=== PATIENT | female | born 1960 | race Caucasian/White ===

== ENCOUNTER 2017-08-14 11:51 | Outpatient (CLI) | payer OTHER | END 2017-08-14 11:52 | disposition home or self-care (01) | LOC: BICMAMMO 11:51 | PROVIDERS: ATTEND Obstetrics & Gynecology | DX: Z12.31 Encounter for screening mammogram for malignant neoplasm of breast (principal); N63.10 Unspecified lump in the right breast, unspecified quadrant | CPT/HCPCS: 77063; 77067 ==

== ENCOUNTER 2017-08-28 09:04 | Outpatient (CLI) | payer OTHER | END 2017-08-28 09:05 | disposition home or self-care (01) | LOC: BICMAMMO 09:04 | PROVIDERS: ATTEND Obstetrics & Gynecology | DX: N63.10 Unspecified lump in the right breast, unspecified quadrant (principal) | CPT/HCPCS: G0279 ==

== ENCOUNTER → 2017-09-10 | Day surgery (SDC) | payer OTHER | LOC: BICULT 12:50 | PROVIDERS: ATTEND Obstetrics & Gynecology | PROC: 0HBT3ZX Excision of Right Breast, Percutaneous Approach, Diagnostic (ICD-10-PCS; principal; 2017-09-10) | DX: C50.311 Malignant neoplasm of lower-inner quadrant of right female breast (principal); Z17.0 Estrogen receptor positive status [ER+] | CPT/HCPCS: 19083; 88305; 88341; 88342 ==

== ENCOUNTER 2017-09-24 09:29 | Outpatient (CLI) | payer OTHER | END 2017-09-24 09:30 | disposition home or self-care (01) | LOC: BICMRI 09:29 | PROVIDERS: ATTEND Internal Medicine Hematology & Oncology | DX: C50.311 Malignant neoplasm of lower-inner quadrant of right female breast (principal); N64.89 Other specified disorders of breast | CPT/HCPCS: C8908 ==

== ENCOUNTER 2017-09-29 08:04 | Outpatient (CLI) | payer OTHER ==
[2017-09-29 09:07] LABS: #Basophils 0.1 thou/uL (0.0-0.2); #Eosinphils 0.2 thou/uL (0.0-0.7); #Lymphocytes 1.4 thou/uL (1.20-3.40); #Monocytes 0.4 thou/uL (0.11-0.59); #Neutrophils 2.5 thou/uL (1.40-6.50); %Basophils 1.7 % (0.0-1.0); %Monocytes 9.5 % (0.0-10.0); %Neutrophils 53.8 % (42.0-75.0); Hemoglobin 13.8 g/dL (12.0-16.0); Mean Corpuscular Hemoglobin 31.1 pg (27.0-31.0); Mean Corpuscular Volume 91.5 fL (78.0-98.0); Mean Platelet Volume 7.4 fL (7.4-10.4); Platelet Count 290 thou/uL (130-400); RBC Distribution Width 11.8 % (11.5-14.5); Red Blood Cell (RBC) Count 4.45 mill/uL (4.20-5.40); White Blood Cell (WBC) Count 4.7 thou/uL (4.8-10.8)
[2017-09-29 09:26] LABS: ALT (SGPT) 23 U/L (8-55); AST (SGOT) 22 U/L (5-34); Albumin 4.4 g/dL (3.5-5.0); Alkaline Phosphatase 84 U/L (40-150); Anion Gap 13 mmol/L (10-20); BUN (Urea Nitrogen) 8 mg/dL (9.8-20.1); Bilirubin, Total 1.2 mg/dL (0.2-1.2); Calc. Creatinine Clearance 0 mL/min (70-130); Calcium 9.6 mg/dL (7.8-10.44); Carbon Dioxide 26 mmol/L (22-29); Chloride 107 mmol/L (98-107); Estimated GFR-MDRD 87; Globulin 2.8 g/dL (2.4-3.5); Glucose 91 mg/dL (70-105); Potassium 4.3 mmol/L (3.5-5.1); Protein, Total 7.2 g/dL (6.0-8.3); Sodium 142 mmol/L (136-145)
== END 2017-09-29 08:05 | disposition home or self-care (01) ==
LOC: LABBT 08:04
PROVIDERS: ATTEND Surgery
DX: Z01.812 Encounter for preprocedural laboratory examination (principal); C50.911 Malignant neoplasm of unspecified site of right female breast
CPT/HCPCS: 80053; 85025

== ENCOUNTER 2017-10-02 07:54 | Day surgery (SDC) | payer OTHER ==
[2017-09-29 08:28] VITALS: BMI 23.9
[2017-10-02] MEDS ORDERED: Lidocaine 1% PF 5 ML VIAL ONE ×3 (08:24→15:49)
[2017-10-02] MEDS ORDERED: CEFAZOLIN/Water 2 GM/20 ML SYRINGE ONE (10:59)
--- NOTE | 2017-10-02 11:09 | ULT ---
ULTRASOUND GUIDED RIGHT BREAST MASS NEEDLE LOCALIZATION: HISTORY: Breast mass. COMPARISON: Multiple prior examinations, including MRI. FINDINGS: The patient was brought to the ultrasound suite. All questions were answered. The right breast was prepped and draped in the normal sterile fashion. Using a medial to lateral henny nunez, the breast mass was speared. The patient tolerated the procedure well without complications. IMPRESSION: The right breast mass, at 5 o'clock, 2 cm from the nipple, was speared from a medial to lateral appro ach. POS: ANU
--- NOTE | 2017-10-02 11:36 | NM ---
NUCLEAR MEDICINE LYMPHOSCINTIGRAPHY: HISTORY: Breast cancer. COMPARISON: Ultrasound guided needle localization, same day. FINDINGS: The patient was brought to the nuclear medicine suite. All questions were answered. TECHNIQUE: A total of 0.44 millicuries of technetium 99m sulfur colloid was instilled in the periareolar region. There was axillary lymph node uptake. IMPRESSION: Axillary lymph node uptake. POS: ANU
[2017-10-02] MEDS ORDERED: Isosulfan Blue 50 MG/5 ML VIAL ONE (11:57)
[2017-10-02] MEDS ORDERED: Bupivacaine/Epinephrine 0.25% 30 ML VIAL ONE (11:57)
[2017-10-02] MEDS ORDERED: Lidocaine 2% 10 ML INJ ONE (11:57)
[2017-10-02] MEDS ORDERED: Fentanyl 100 MCG/2 ML VIAL ONE ×3 (12:06→14:37)
[2017-10-02] MEDS ORDERED: Midazolam HCl 2 mg/2 ml Vial ONE ×2 (12:09→13:33)
[2017-10-02] MEDS ORDERED: HYDROmorphone 0.5 MG/0.5 ML SYRINGE ONE (13:32)
--- NOTE | 2017-10-02 14:23 | MMO ---
MAMMOGRAM SURGICAL SPECIMEN: Date: 10/02/17 HISTORY: Breast mass. COMPARISON: Ultrasound guided needle localization same date. FINDINGS: The specimen contains a needle, mass, and clip. IMPRESSION: Specimen contains a needle, mass, and clip. OR nurse notified of findings via telephone at 1345 hours. CODE CR. POS: [facility]
[2017-10-02] MEDS ORDERED: HYDROcodone/Acetaminophen 5/325 mg Tablet ONE (15:39)
[2017-10-02] MEDS ORDERED: PROPOFOL 200 MG/20 ML VIAL ONE (15:49)
[2017-10-02] MEDS ORDERED: Ondansetron HCl/PF 4 MG/2 ML Vial ONE (15:49)
[2017-10-02] MEDS ORDERED: Dexamethasone 20 MG/5 ML VIAL ONE (15:49)
[2017-10-02] MEDS ORDERED: ePHEDrine/0.9% NaCl/PF SYRINGE 50 mg/10 ml ONE (15:49)
--- NOTE | 2017-10-02 20:29 | OP ---
PREOPERATIVE DIAGNOSIS: Right breast cancer. SURGEON: Raudel Vincent M.D. PROCEDURE PERFORMED: Right needle localization lumpectomy, lymphoscintigraphy and sentinel lymph nod e biopsy. INDICATIONS: A 57-year-old female, recent mammogram had an area of suspicion. Core biopsy was posit elana for infiltrating ductal carcinoma. She had an MRI of the breast that showed that this was a chari le more extensive towards the nipple. FINDINGS: Four sentinel nodes were found, all negative by touch prep. At least the firm indurated a rakesh did seem to be larger than expected and was probably about 2 cm in diameter and extended subareol ar and towards the nipple. PROCEDURE IN DETAIL: After informed consent was obtained, the patient had undergone placement of nee dle localization as well as radionuclide in Radiology. She was given general endotracheal anesthesia and Lymphazurin 3 mL was infiltrated subareola. Then her chest and axilla were prepped and draped i n usual fashion. A Neoprobe was used with a baseline count of 5. Transcutaneous counts were found o f 50. A transverse axillary incision was performed. Subcu divided sharply and 150 was found. It was blue. It was dissected out efferent and afferent lymphatics ligated with 3-0 Vicryl ties, th en found actually 3 more nodes that were both hot and colored and removed. After that, residual coun ts were all less than 15. There were no other blue nodes noted. The specimens were sent to patholog y for touch prep. Then because there was a concern that this was a larger tumor than expected and it was in the lower inner quadrant of the breast, elected to do an oncoplastic incision. A triangle wa s cut out of skin, which was left attached to the specimen in the inferior portion of the breast all the way from the areola to the inframammary crease. The subcu divided sharply and once through the s ubcu, the tumor was palpable and using sharp dissection with both Metzenbaum scissors and electrocaut mariama, excised this tissue. The needle was left into the specimen marking the medial edge, the skin, t he anterior edge. The mass was sent to pathology for further analysis. Hemostasis was achieved with electrocautery. The wound was irrigated with saline. Then the triangle was closed as a reversed T with interrupted 3-0 Vicryl sutures and then a running subcuticular 4-0 Rapide. Steri-Strips applied . Prior to that because a fairly large defect, I did place a 10-Arabic drain which came out through a separate stab wound. By now, the nodes came back negative and so her axilla was irrigated, closed with interrupted 3-0 Vicryl and skin closed with running subcuticular 4-0 Rapide with Steri-Strips. Sterile bandage applied. The patient tolerated the procedure well and was transferred to recovery in good condition. Sponge and needle count verified correct x2.
--- NOTE | 2017-10-05 08:23 | OP ---
DATE OF PROCEDURE: 10/02/2017 PREOPERATIVE DIAGNOSES: 1. Retained Mirena IUD with stenotic cervical os. 2. Breast cancer. PROCEDURES PERFORMED: Exam under anesthesia, cervical dilation, Mirena IUD removal. COMPLICATIONS: None. ESTIMATED BLOOD LOSS: Less than 5 mL. SURGEON: Ashok Simeon D.O. FINDINGS: 1. An atrophic vagina with atrophic and stenotic external cervical os. 2. Mirena IUD removed, intact. PROCEDURE DETAILS: The patient was taken back to the OR with IV fluids running for a planned needle- localization lumpectomy, lymphoscintigraphy, and sentinel node biopsy by Dr. Vincent with the patient d esiring removal of Mirena IUD that was not able to be removed in the office due to cervical atrophy a nd stenosis at the same time. When the patient arrived in the OR, she received anesthesia with LMA. She was placed on low dorsal lithotomy position and the vagina was prepped. The bladder was drained approximately 20 mL of urine. An operative speculum was placed into the vagina and the cervix was v isualized. The anterior lip of the cervix was grasped with a single-tooth tenaculum. Pediatric uret hral dilators were used to serially dilate the external cervical os, which was dilated to the smalles t Hegar Tamazight dilator size; we progressed to Hegar dilators. Once the cervix was adequately dilated to pass the uterine dressing, forceps 1 was gently passed into the cervical os. The strings were ea sily grasped within the cervix and the Mirena IUD was removed intact. The tenaculum was removed from the cervix with only minimal light bleeding noted. The instruments were removed from the vagina and the counts were correct.
== END 2017-10-02 16:40 | disposition home or self-care (01) ==
LOC: SDC 07:54 → EEVIPCON 08:00 → SDC 16:40
PROVIDERS: ATTEND Surgery
PROC: 0HBT0ZZ Excision of Right Breast, Open Approach (ICD-10-PCS; principal; 2017-10-02)
PROC: 0UPD7HZ Removal of Contraceptive Device from Uterus and Cervix, Via Natural or Artificial Opening (ICD-10-PCS; principal; 2017-10-02)
PROC: 07B50ZX Excision of Right Axillary Lymphatic, Open Approach, Diagnostic (ICD-10-PCS; principal; 2017-10-02)
DX: C50.311 Malignant neoplasm of lower-inner quadrant of right female breast (principal); C77.3 Secondary and unspecified malignant neoplasm of axilla and upper limb lymph nodes; N88.2 Stricture and stenosis of cervix uteri; N95.2 Postmenopausal atrophic vaginitis; E55.9 Vitamin D deficiency, unspecified; Z97.5 Presence of (intrauterine) contraceptive device; Z86.718 Personal history of other venous thrombosis and embolism; Z79.899 Other long term (current) drug therapy
CPT/HCPCS: 19285; 76098; 78195; 88307; 88333; 88334; 88341; 88342; A9541; J1100; J1170; J2001; J2250; J2405; J2704; J3010; Q9968

== ENCOUNTER 2017-10-21 07:30 | Inpatient (IN) | payer OTHER ==
[2017-10-20 14:22] VITALS: BMI 23.9
[2017-10-21] MEDS ORDERED: Scopolamine 1.5 mg/72 hour Patch ONE (08:10)
[2017-10-21] MEDS ORDERED: CEFAZOLIN/Water 2 GM/20 ML SYRINGE ONE (08:10)
[2017-10-21] MEDS ORDERED: Midazolam HCl 2 mg/2 ml Vial ONE ×3 (08:10→10:02)
[2017-10-21] MEDS ORDERED: Fentanyl 250 MCG/5 ML VIAL ONE ×2 (09:14→10:02)
[2017-10-21] MEDS ORDERED: Famotidine/PF 20 mg/2ml Vial ONE (09:14)
[2017-10-21] MEDS ORDERED: Promethazine HCl 25 MG/ML VIAL IM PRN ×2 (10:23→12:22)
[2017-10-21] MEDS ORDERED: Ondansetron HCl/PF 4 MG/2 ML Vial IVP PRN ×2 (10:23→12:22)
[2017-10-21] MEDS ORDERED: HYDROmorphone 2 MG/ML VIAL SLOW IVP PRN (10:23)
[2017-10-21] MEDS ORDERED: Meperidine HCl/PF 25 MG/ML VIAL SLOW IVP PRN (10:23)
[2017-10-21] MEDS ORDERED: Morphine Sulfate 2 MG/ML SYRINGE SLOW IVP PRN (10:23)
[2017-10-21] MEDS ORDERED: Promethazine HCl 25 MG/ML VIAL SLOW IVP PRN (10:23)
--- NOTE | 2017-10-21 10:44 | OP ---
DATE OF PROCEDURE: 10/21/2017 PREOPERATIVE DIAGNOSIS: Right breast cancer with positive margin. SURGEON: Dr. Vincent. PROCEDURE PERFORMED: Right simple mastectomy. INDICATIONS: This is a 57-year-old female who two weeks ago had a lumpectomy needle directed for a l ower inner quadrant breast cancer. It was more extensive and was shown on mammogram or MRI and we go t a very broadly positive superior margin which was right under the nipple. She has relatively small breasts and again it was centrally located. She elected for a mastectomy. FINDINGS: We removed the scar in seroma cavity, nipple areola complex, we will await micro. EBL: Approximately 100 mL. PROCEDURE IN DETAIL: After informed consent was obtained, the patient was taken to the operating fran m and given general endotracheal anesthesia. She was placed in the supine position. Her right chest was prepped and draped in usual fashion. An elliptical incision was performed utilizing a 10 blade scalpel. Subcu divided sharply utilizing the plasma blade. The plane was developed between subcutan eous tissue and breast tissue sharply with the plasma blade. Hemostasis achieved with the plasma cora de. The dissection was performed to the level of clavicle superior, the sternum medially, the rectus inferiorly and latissimus laterally. Then it was removed from the chest wall to include the pectora lis fascia utilizing the plasma blade. It was marked with a suture superiorly, sent to pathology for further analysis. Hemostasis was achieved. The wound thoroughly irrigated and irrigation fluid rem selina. Two drains were placed, one to the lateral one inferior, then the subcu reapproximated with in terrupted 3-0 Vicryl. The skin closed with a running subcuticular 4-0 Rapide. Steri-Strips applied. Sterile bandage applied. The patient tolerated the procedure well and was transferred to recovery in good condition. Sponge and needle count verified correct x2.
[2017-10-21] MEDS ORDERED: Fentanyl 100 MCG/2 ML VIAL ONE ×2 (10:51→11:44)
[2017-10-21] MEDS ORDERED: hydrALAZINE 20 MG/ML VIAL SLOW IVP PRN (12:22)
[2017-10-21] MEDS ORDERED: Dextrose 50% Abboject 50 ML SYRINGE SLOW IVP PRN (12:22)
[2017-10-21] MEDS ORDERED: HYDROcodone/Acetaminophen 10/325 mg Tablet PO PRN (12:22)
[2017-10-21] MEDS ORDERED: Morphine 4 MG/ML Carpuject SLOW IVP PRN (12:22)
[2017-10-21] MEDS ORDERED: Dextrose 5% in Water 1,000 ML IV PRN (12:22)
[2017-10-21] MEDS ORDERED: Morphine 4 MG/ML VIAL IV PRN (14:10)
[2017-10-21] MEDS: Morphine 4 MG/ML VIAL IV PRN ×2 (14:24→23:21)
[2017-10-21] MEDS ORDERED: Ondansetron HCl/PF 4 MG/2 ML Vial ONE (15:03)
[2017-10-21] MEDS ORDERED: PROPOFOL 200 MG/20 ML VIAL ONE (15:03)
[2017-10-21] MEDS ORDERED: Lidocaine 1% PF 5 ML VIAL ONE (15:03)
[2017-10-21] MEDS ORDERED: PHENYLEPHRINE-NS 100 MCG/ML 10 ML SYRINGE ONE (15:03)
[2017-10-21] MEDS ORDERED: Dexamethasone 20 MG/5 ML VIAL ONE (15:03)
[2017-10-21] MEDS ORDERED: Metoclopramide HCl 10 MG/2 ML VIAL ONE (15:03)
[2017-10-21] MEDS: HYDROcodone/Acetaminophen 10/325 mg Tablet PO PRN ×2 (15:39→21:37)
[2017-10-21] MEDS: D5 1/2 NS w/20 mEq KCL 1,000 ML IV SCH (18:31)
[2017-10-21] MEDS: CEFAZOLIN/Water 2 GM/20 ML SYRINGE SLOW IVP SCH (18:31)
[2017-10-21] MEDS: Famotidine 20 MG TAB PO SCH (21:38)
[2017-10-22] MEDS: CEFAZOLIN/Water 2 GM/20 ML SYRINGE SLOW IVP SCH ×2 (02:20→13:36)
[2017-10-22 05:37] LABS: #Lymphocytes 1.2 thou/uL (1.20-3.40); #Monocytes 0.8 thou/uL (0.11-0.59); #Neutrophils 8.1 thou/uL (1.40-6.50); %Basophils 0.2 % (0.0-1.0); %Eosinophils 0.2 % (0.0-10.0); %Lymphocytes 12.2 % (21.0-51.0); %Monocytes 7.8 % (0.0-10.0); %Neutrophils 79.6 % (42.0-75.0); Hemoglobin 11.8 g/dL (12.0-16.0); Mean Corpuscular HGB CONC 33.9 g/dL (32.0-36.0); Mean Corpuscular Hemoglobin 31.6 pg (27.0-31.0); Mean Corpuscular Volume 93.2 fL (78.0-98.0); Mean Platelet Volume 8.2 fL (7.4-10.4); Platelet Count 258 thou/uL (130-400); Red Blood Cell (RBC) Count 3.74 mill/uL (4.20-5.40); White Blood Cell (WBC) Count 10.2 thou/uL (4.8-10.8)
[2017-10-22] MEDS: HYDROcodone/Acetaminophen 10/325 mg Tablet PO PRN (06:38)
[2017-10-22] MEDS: D5 1/2 NS w/20 mEq KCL 1,000 ML IV SCH (08:18)
[2017-10-22] MEDS: Famotidine 20 MG TAB PO SCH (08:19)
[2017-10-22] MEDS ORDERED: Enoxaparin Sodium 40 MG/0.4 ML SYRINGE SC SCH (09:00)
[2017-10-22 12:30] VITALS: BP 114/67; TEMP 98.2
--- NOTE | 2017-10-22 14:18 | DIS ---
DISCHARGE DIAGNOSIS: Right breast cancer. SURGEON: Dr. Vincent. PROCEDURE PERFORMED: Right simple mastectomy. HOSPITAL COURSE: The patient was admitted, taken to the operating room where she underwent simple ma stectomy. Postoperatively, she has done well. She remains afebrile. Pain is controlled on p.o. med s. Drain output is 35 from each tube. She is discharged home on hydrocodone and Zofran. She will f ollow up with me next week.
== END 2017-10-22 13:39 | disposition home or self-care (01) | DRG 583 ==
LOC: SDC 07:30 → SURG A 12:22
PROVIDERS: ADMIT Surgery; ATTEND Surgery
PROC: 0HTT0ZZ Resection of Right Breast, Open Approach (ICD-10-PCS; principal; 2017-10-21)
DX: C50.911 Malignant neoplasm of unspecified site of right female breast (principal)
CPT/HCPCS: 36415; 85025; 88307; J0131; J1100; J2001; J2250; J2270; J2405; J2704; J2765; J3010; S0028

== ENCOUNTER → 2017-11-06 | Day surgery (SDC) | payer OTHER ==
[2017-11-05 16:12] VITALS: BMI 23.9
[~2017-11-06] MED LIST: Bupivacaine 0.25% HCL 30 ML VIAL ONE; Bupivacaine/Epinephrine 0.25% 30 ML VIAL ONE; CEFAZOLIN/Water 2 GM/20 ML SYRINGE ONE; Fentanyl 100 MCG/2 ML VIAL IV PRN; Fentanyl 100 MCG/2 ML VIAL ONE; Fentanyl 250 MCG/5 ML VIAL ONE; Gentamicin 80 MG/2 ML VIAL ONE; HYDROcodone/Acetaminophen 10/325 mg Tablet PO PRN; HYDROmorphone 2 MG/ML VIAL ONE; Heparin 5,000 UNITS/ML VIAL ONE; Ketorolac Tromethamine 30 MG/ML VIAL IVP PRN; Ketorolac Tromethamine 30 MG/ML VIAL ONE; Midazolam HCl 2 mg/2 ml Vial ONE; Ondansetron HCl/PF 4 MG/2 ML Vial IVP PRN; Promethazine HCl 25 MG/ML VIAL IM PRN; Ropivacaine 0.2% 550 ML 550 ML NERVE BLCK SCH; Sodium Chloride 0.9% 10 ML ONE; Zolpidem Tartrate 5 MG TAB PO PRN; traMADol HCl 50 MG TAB PO PRN
--- NOTE | 2017-11-07 06:43 | OP ---
PREOPERATIVE DIAGNOSIS: Right breast cancer. POSTOPERATIVE DIAGNOSIS: Right breast cancer. PROCEDURES: 1. Placement of right tissue laundry or dry cleaners counter clerk ([id number]). 2. Placement of Strattice acellular dermis (320 cm2) (26445). DESCRIPTION OF PROCEDURE: Following induction of adequate anesthesia, the patient was prepped and dr aped in usual sterile fashion in the supine position. A right inframammary crease incision was made. Dissection was carried sharply down through the subcutaneous tissue to the pectoralis fascia. Subs equently, an adequate prepectoral pocket was made. smooth round tissue laundry or dry cleaners counter clerk was placed and filled to a volume of 250 mL after closure of the inframammary crease incision with 3-0 PDS suture a nd 3-0 Monocryl suture. Prior to placement of the laundry or dry cleaners counter clerk, the pocket was copiously irrigated with triple-antibiotic solution and dilute Betadine solution following inspection for meticulous hemostasi s. Also, at one point, due to the very inflamed nature of the pocket having had a recent mastectomy, TXA was irrigated through the pocket and allowed to sit for 5 minutes. All of that fluid was remove d by suction. The patient tolerated the procedure well.
== END ==
LOC: SDC 13:06
PROVIDERS: ATTEND Plastic Surgery
PROC: 0HHT0NZ Insertion of Tissue Expander into Right Breast, Open Approach (ICD-10-PCS; principal; 2017-11-06)
DX: Z42.1 Encounter for breast reconstruction following mastectomy (principal); Z85.3 Personal history of malignant neoplasm of breast; Z79.899 Other long term (current) drug therapy
CPT/HCPCS: 87070; 87205; A4216; A4306; J1170; J1580; J1644; J1885; J2250; J2795; J3010; J3370; J3490; S0020

== ENCOUNTER 2018-03-05 15:58 | Day surgery (SDC) | payer OTHER ==
[2018-02-25 09:51] VITALS: BMI 22.6
[2018-03-05] MEDS ORDERED: Heparin 5,000 UNITS/ML VIAL ONE (17:07)
[2018-03-05] MEDS ORDERED: CEFAZOLIN 2 GM/50 ML BAG ONE (17:07)
[2018-03-05] MEDS ORDERED: Bupivacaine/Epinephrine 0.25% 30 ML VIAL ONE (17:27)
[2018-03-05] MEDS ORDERED: Gentamicin 80 MG/2 ML VIAL ONE (17:27)
[2018-03-05] MEDS ORDERED: Sodium Chloride 0.9% 20 ML ONE (17:27)
[2018-03-05] MEDS ORDERED: Sodium Chloride 0.9% 0 ML ONE (17:39)
[2018-03-05] MEDS ORDERED: Fentanyl 100 MCG/2 ML VIAL ONE ×2 (17:45→20:03)
[2018-03-05] MEDS ORDERED: Propofol 1,000 MG/100 ML VIAL IV ONE (18:06)
[2018-03-05] MEDS ORDERED: HYDROcodone/Acetaminophen 5/325 mg Tablet ONE (20:30)
[2018-03-05] MEDS ORDERED: PHENYLEPHRINE-NS 100 MCG/ML 10 ML SYRINGE ONE (20:43)
[2018-03-05] MEDS ORDERED: Lidocaine 1% PF 5 ML VIAL ONE (20:43)
[2018-03-05] MEDS ORDERED: Ondansetron PF 4 MG/2 ML Vial ONE (20:43)
[2018-03-05] MEDS ORDERED: ePHEDrine/0.9% NaCl/PF SYRINGE 50 mg/10 ml ONE (20:43)
[2018-03-05] MEDS ORDERED: Glycopyrrolate 0.2 MG/ML 5 ML SYRINGE ONE (20:43)
--- NOTE | 2018-03-06 02:57 | OP ---
DATE OF PROCEDURE: 03/05/2018 PREOPERATIVE DIAGNOSES: 1. Status post breast cancer. 2. Status post right mastectomy. 3. Status post placement of right tissue equipment tester. 4. Asymmetry of breast reconstruction. PROCEDURES PERFORMED: 1. Exchange of right tissue equipment tester for permanent breast prosthesis with capsular work (52875.RT). 2. Left breast augmentation for symmetry (52259.LP). 3. Left mastopexy for symmetry (.LP). OPERATIVE FINDINGS: 1. Left breast implant: Rienzi, reference #[id number], serial #[id number]. 2. Right breast implant: Rienzi, reference #[id number], serial #[id number]. DESCRIPTION OF PROCEDURE: Following induction of adequate anesthesia, the patient was prepped and draped in the usual sterile fashion in the supine position. Attention was first turned to the right breast. The existing right inframammary crease scar was incised. Dissection was carried sharply down through the subcutaneous tissue to the underlying breast pocket and dermal matrix. This was incised. The present tissue equipment tester was deflated and removed. The pocket was opened with small capsulotomies laterally to adjust the pocket. The pocket was inspected for meticulous hemostasis prior to placement of the above implant. The implant was placed after the pocket had been copiously irrigated with triple antibiotic solution as well as dilute Betadine solution. A 380 mL Rienzi implant was chosen. Attention was then turned to the contralateral left side. An inframammary crease incision was made. Dissection was carried sharply down through the breast tissue to an underlying pectoralis fascia which was incised. Subsequently, an adequate submuscular pocket was created with release of the inferior attachments of the pectoralis major muscle. The pocket was copiously irrigated with the above solutions and inspected for meticulous hemostasis prior to placement of sizer. The above 190 mL implant was chosen for breast symmetry. This was placed after reinspection of the pocket. The inframammary crease or parenchymal layer was closed with 3-0 PDS suture. The patient still has some existing breast ptosis. Tailor tacking was done to determine what kind of ellipse would be needed and modified suarez pattern and skin pattern was then de-epithelialized. The inverted T was closed with 3-0 PDS suture. The nipple was circumcised to run a 42 mm nipple sizer. It was then inset with a similar size defect using 3-0 PDS suture and 3-0 Monocryl suture. The patient tolerated the procedure well. Job ID: [id number]
== END 2018-03-05 21:00 | disposition home or self-care (01) ==
LOC: SDC 15:58
PROVIDERS: ATTEND Plastic Surgery
PROC: 0HRV0JZ Replacement of Bilateral Breast with Synthetic Substitute, Open Approach (ICD-10-PCS; principal; 2018-03-05)
PROC: 0HPT0NZ Removal of Tissue Expander from Right Breast, Open Approach (ICD-10-PCS; principal; 2018-03-05)
PROC: 0H0U0JZ Alteration of Left Breast with Synthetic Substitute, Open Approach (ICD-10-PCS; principal; 2018-03-05)
DX: Z85.3 Personal history of malignant neoplasm of breast (principal); L08.9 Local infection of the skin and subcutaneous tissue, unspecified
CPT/HCPCS: 88305; 96374; C1789; J1580; J1644; J2001; J2405; J2704; J3010; J3370; J3490

== ENCOUNTER 2018-08-31 09:00 | Outpatient (CLI) | payer OTHER ==
--- NOTE | 2018-08-31 09:33 | BD ---
DEXA BONE DENSITOMETRY: (Dual energy x-ray absorptiometry) DATE: 08/31/2018 HISTORY: 64-year old white female for age-related, post-menopausal, osteoporosis screening. weight: 130 lbs height: 63 in. age of menopause: 57 COMPARISON: None available. FINDINGS: The bone mineral density (BMD) is given in grams per square centimeter (g/cm2): LUMBAR SPINE: BMD (g/cm^2) T score Z score L1: 0.810 -1.6 -0.6 L2: 0.872 -1.4 -0.2 L3: 0.879 -1.9 -0.6 L4: 0.869 -1.7 -0.5 Total: 0.858 -1.7 -0.5 HIP: BMD (g/cm^2) T score Z score Femoral neck: 0.681 -1.5 -0.4 Total: 0.874 -0.6 0.2 FRAX WHO fracture risk assessment tool: 10 year fracture risk* Major osteoporotic fracture: 7.0 % Hip fracture: 0.6 % Reported risk factors: US (), neck BMD = 0.681 (g/cm^2), BMI = 23.0. *Fracture probability is calculated for an untreated patient. Fracture probability may be lower if th e patient has received treatment. IMPRESSION: 1.) The mean bone mineral density of the lumbar spine is osteopenic. Fracture risk is increased. 2) The bone mineral density of the femoral neck is osteopenic. Fracture risk is increased.
--- NOTE | 2018-08-31 10:02 | MMO ---
Left Breast MAMMO Unilat Diag DDI LT+JANIS. CLINICAL HISTORY: Patient is 58 years old and is seen for diagnostic exam. The patient has no family history of breast cancer. The patient has a history of right Mastectomy in 2018 - malignant and bilateral Implants - benign. VIEWS: The views performed were: left craniocaudal; left mediolateral oblique; left mediolateral; and left Implant displaced with tomosynthesis. FILMS COMPARED: The present examination has been compared to prior imaging studies performed at [facility] on 01/08/2016, 07/29/2016, 08/14/2017 and 08/28/2017. MAMMOGRAM FINDINGS: The breast is heterogeneously dense, which could obscure a lesion on mammography. Left breast implant is intact. There are no suspicious masses, suspicious calcifications, or new areas of architectural distortion. IMPRESSION: THERE IS NO MAMMOGRAPHIC EVIDENCE OF MALIGNANCY. A ROUTINE FOLLOW-UP MAMMOGRAM IN 1 YEAR IS RECOMMENDED. THE RESULTS OF THIS EXAM WERE SENT TO THE PATIENT. ACR BI-RADS Category 2 - Benign finding MAMMOGRAPHY NOTE: 1. A negative mammogram report should not delay a biopsy if a dominant of clinically suspicious mass is present. 2. Approximately 10% to 15% of breast cancers are not detected by mammography. 3. Adenosis and dense breasts may obscure an underlying neoplasm.
== END 2018-08-31 09:01 | disposition home or self-care (01) ==
LOC: BICMAMMO 09:00
PROVIDERS: ATTEND Internal Medicine Hematology & Oncology
DX: Z13.820 Encounter for screening for osteoporosis (principal); C50.311 Malignant neoplasm of lower-inner quadrant of right female breast; M85.89 Other specified disorders of bone density and structure, multiple sites; Z90.11 Acquired absence of right breast and nipple; Z98.82 Breast implant status
CPT/HCPCS: 77080; G0279

== ENCOUNTER 2018-10-06 14:35 | Outpatient (CLI) | payer OTHER ==
[~2018-10-06 14:35] MED LIST changes: -Bupivacaine 0.25% HCL 30 ML VIAL ONE; -Bupivacaine/Epinephrine 0.25% 30 ML VIAL ONE; -CEFAZOLIN/Water 2 GM/20 ML SYRINGE ONE; -Fentanyl 100 MCG/2 ML VIAL IV PRN; -Fentanyl 100 MCG/2 ML VIAL ONE; -Fentanyl 250 MCG/5 ML VIAL ONE; +Gadobenate Dimeglumine 529 MG/1 ML (20ML VIAL) ONE; -Gentamicin 80 MG/2 ML VIAL ONE; -HYDROcodone/Acetaminophen 10/325 mg Tablet PO PRN; -HYDROmorphone 2 MG/ML VIAL ONE; -Heparin 5,000 UNITS/ML VIAL ONE; -Ketorolac Tromethamine 30 MG/ML VIAL IVP PRN; -Ketorolac Tromethamine 30 MG/ML VIAL ONE; -Midazolam HCl 2 mg/2 ml Vial ONE; -Ondansetron HCl/PF 4 MG/2 ML Vial IVP PRN; -Promethazine HCl 25 MG/ML VIAL IM PRN; -Ropivacaine 0.2% 550 ML 550 ML NERVE BLCK SCH; -Sodium Chloride 0.9% 10 ML ONE; -Zolpidem Tartrate 5 MG TAB PO PRN; -traMADol HCl 50 MG TAB PO PRN
--- NOTE | 2018-10-06 17:40 | MRI ---
MRI BREAST WITH AND WITHOUT CONTRAST: HISTORY: History of right breast cancer in the lower inner quadrant of the right breast. Status post right ma stectomy and implant reconstruction of both breasts. COMPARISON: 08/31/2018 TECHNIQUE: Multiplanar, multisequence MR images of the bilateral breasts with and without IV contrast. FINDINGS: The patient is status post right mastectomy with implant reconstruction of the right breast using a s ilicone implant. There is heterogeneous dense breast parenchyma in the left breast. The patient has a smaller silicone breast implant in the posterior aspect of the left breast. Minimal background pa renchymal enhancement is seen. No suspicious mass or enhancement is seen in either breast. No axillary adenopathy is seen. No internal mammary lymph nodes are identified. The visualized anterior liver and osseous structures are unremarkable. IMPRESSION: BI-RADS category 2-Benign findings. Annual screening mammography is recommended. POS: CET
== END 2018-10-06 14:36 | disposition home or self-care (01) ==
LOC: BICMRI 14:35
PROVIDERS: ATTEND Internal Medicine Hematology & Oncology
DX: C50.311 Malignant neoplasm of lower-inner quadrant of right female breast (principal)
CPT/HCPCS: A9577; C8908

== ENCOUNTER 2019-03-24 10:58 | Outpatient (CLI) | payer OTHER ==
--- NOTE | 2019-03-24 11:35 | ULT ---
LIMITED RIGHT BREAST ULTRASOUND: DATE: 03/24/2019. PROVIDED CLINICAL HISTORY: Right breast palpable abnormality. FINDINGS: Limited sonographic interrogation was performed of the right breast at the 11 and 1 o'clock positions . The patient is status post mastectomy with right breast prosthesis. At the 11 o'clock position of the right breast there is a focal are of diminished echogenicity demons trating posterior acoustic shadowing and measuring about 6-7 mm immediately overlying the breast impl ant capsule. At the 1 o'clock position of the right breast, there is a circumscribed focus of altered echogenicity measuring approximately 5 mm associated with posterior acoustic shadowing immediately overlying the right breast implant. IMPRESSION: Hypoechoic ishan-implant masses adjacent to the right breast implant, the etiology and significance of which are uncertain. The sonographic appearance of these are nonspecific. Neoplasm cannot be exclu ded on the basis of their sonographic appearance. Consider MRI for further evaluation versus tissue sampling. POS: OFF
== END 2019-03-24 10:59 | disposition home or self-care (01) ==
LOC: BICULT 10:58
PROVIDERS: ATTEND Emergency Medicine
DX: C50.911 Malignant neoplasm of unspecified site of right female breast (principal); Z98.82 Breast implant status

== ENCOUNTER 2019-04-06 08:16 | Outpatient (CLI) | payer OTHER ==
[2019-04-06] MEDS ORDERED: Magnevist 469MG/ML 20 ML VIAL ONE (13:53)
--- NOTE | 2019-04-11 09:20 | MRI ---
MRI BREAST WITH AND WITHOUT IV CONTRAST WITH ADDITIONAL REVIEW AT INDEPENDENT 3D WORK STATION. HISTORY: Right-sided breast cancer. History of breast cancer in female. COMPARISON: MRI of breast of 10/06/2018. FINDINGS: Bilateral silicone breast implants are again seen with changes of right mastectomy. The left silicon e breast implant in the posterior aspect of the left breast is small compared to the right. The impl ants are stable in size. No suspicious mass or abnormal enhancement is seen on either side. No axillary or internal mammary l ymphadenopathy is identified. IMPRESSION: BIRADS category 2 - benign findings. Return to annual mammographic screening. This exam was interpreted in consultation with Dr Vinh Villagomez who concurs. POS: OFF
== END 2019-04-06 08:17 | disposition home or self-care (01) ==
LOC: BICMRI 08:16
PROVIDERS: ATTEND Surgery
DX: Z08 Encounter for follow-up examination after completed treatment for malignant neoplasm (principal); Z85.3 Personal history of malignant neoplasm of breast
CPT/HCPCS: A9579; C8908

== ENCOUNTER 2019-09-30 09:09 | Outpatient (CLI) | payer OTHER ==
[2019-09-30] MEDS ORDERED: Iopamidol-370 76% 500 ML 1 ML ONE (12:01)
--- NOTE | 2019-09-30 12:17 | CT ---
EXAM: CTA Angio Abd Pelvis W WO Con PROVIDED CLINICAL HISTORY: Breast cancer. This examination is being performed to evaluate the deep inferior epigastric perforati ng arterial branches in preparation for breast reconstructive surgery. COMPARISON: None FINDINGS: Imaging was obtained from just below level of the superior mesenteric artery to the level of the prox imal superficial femoral arteries. The abdominal aorta and iliac arteries are patent. The common femoral arteries as well as most proxim al visualized superficial femoral and profunda femoral arteries are patent. The inferior mesenteric artery is visualized and patent. The inferior epigastric arteries are visualized bilaterally. No significant inferior epigastric perfo rating arterial branch is seen exiting the anterior aspect of the rectus sheath on the right, and the perforating branches primarily reside within the rectus sheath and rectus muscle on the right. Ho wever, there is suggestion of a very tiny perforating branch exiting at the lateral aspect of the rectus sheath on the right approximately 1.5 cm superior to the level of the umbilicus. There is a perforating epigastric artery branch exiting the midportion anterior left rectus sheath an d muscle approximately 1.8 cm above the level of the umbilicus. There is a very tiny perforating branch exiting the lateral aspect of the left rectus sheath approximately 2.4 cm below the level of t he umbilicus. There also appears to be a very tiny perforating branch exiting the medial aspect of the left rectus sheath at the level of the umbilicus; however, this branch does not demonstrate signi ficant arterial enhancement. The visualized bilateral kidneys, urinary bladder and uterus demonstrates a normal CT appearance for arterial phase of imaging. A small fat-containing umbilical hernia is present.. IMPRESSION: Inferior epigastric arteries are patent bilaterally with perforating branches exiting the rectus berumen th as described above.
== END 2019-09-30 09:10 | disposition home or self-care (01) ==
LOC: BICCT 09:09
DX: Z08 Encounter for follow-up examination after completed treatment for malignant neoplasm (principal); Z85.3 Personal history of malignant neoplasm of breast
CPT/HCPCS: 74174; Q9967

== ENCOUNTER 2020-01-17 09:32 | Outpatient (CLI) | payer OTHER ==
--- NOTE | 2020-01-17 09:57 | MMO ---
Left Breast MAMMO Unilat Diag DDI LT+JANIS. CLINICAL HISTORY: Patient is 59 years old and is seen for diagnostic exam. The patient has no family history of breast cancer. The patient has a history of right Mastectomy in 2018 - malignant, left needle biopsy in 2016 - benign and bilateral Implants - benign. VIEWS: The views performed were: left craniocaudal; left craniocaudal implant displaced; left craniocaudal with tomosynthesis; left mediolateral oblique; left mediolateral oblique implant displaced; left mediolateral oblique with tomosynthesis; left mediolateral; left mediolateral implant displaced; and left mediolateral with tomosynthesis. FILMS COMPARED: The present examination has been compared to prior imaging studies performed at [facility] on 08/31/2018, 10/06/2018, 03/24/2019 and 04/06/2019. This study has been interpreted with the assistance of computer-aided detection. MAMMOGRAM FINDINGS: The breast is heterogeneously dense, which could obscure a lesion on mammography. Finding 1: There is a stable biopsy clip seen in the upper-outer region of the left breast. Finding 2: Normal implants are present. There are no suspicious masses, suspicious calcifications, or new areas of architectural distortion. IMPRESSION: THERE IS NO MAMMOGRAPHIC EVIDENCE OF MALIGNANCY. A ROUTINE FOLLOW-UP MAMMOGRAM IN 1 YEAR IS RECOMMENDED. THE RESULTS OF THIS EXAM WERE SENT TO THE PATIENT. ACR BI-RADS Category 2 - Benign finding MAMMOGRAPHY NOTE: 1. A negative mammogram report should not delay a biopsy if a dominant of clinically suspicious mass is present. 2. Approximately 10% to 15% of breast cancers are not detected by mammography. 3. Adenosis and dense breasts may obscure an underlying neoplasm. Reported by: TRENT ABDUL MD Electonically Signed: [id number]
== END 2020-01-17 09:33 | disposition home or self-care (01) ==
LOC: BICMAMMO 09:32
PROVIDERS: ATTEND Internal Medicine Hematology & Oncology
DX: Z08 Encounter for follow-up examination after completed treatment for malignant neoplasm (principal); Z85.3 Personal history of malignant neoplasm of breast
CPT/HCPCS: G0279

== ENCOUNTER 2020-05-01 10:43 | Outpatient (CLI) | payer OTHER ==
--- NOTE | 2020-05-01 11:12 | RAD ---
EXAM: Chest 2 views: HISTORY: Preoperative radiograph COMPARISON: None. FINDINGS: There is a normal-sized cardiomediastinal silhouette. There is no evidence of consolidation, mass, or pleural effusion. No acute osseous abnormality. The patient has a right breast implant. IMPRESSION: No evidence of acute cardiopulmonary disease
== END 2020-05-01 10:44 | disposition home or self-care (01) ==
LOC: BICRAD 10:43
PROVIDERS: ATTEND Internal Medicine
DX: Z01.818 Encounter for other preprocedural examination (principal)
CPT/HCPCS: 71046; 80048; 81001; 85025; 87086

== ENCOUNTER 2021-02-04 14:52 | Outpatient (CLI) | payer OTHER | END 2021-02-04 14:53 | disposition home or self-care (01) | LOC: BICMAMMO 14:52 | PROVIDERS: ATTEND Internal Medicine Hematology & Oncology | DX: Z08 Encounter for follow-up examination after completed treatment for malignant neoplasm (principal); Z85.3 Personal history of malignant neoplasm of breast | CPT/HCPCS: G0279 ==

== ENCOUNTER 2022-03-14 13:53 | Outpatient (CLI) | payer BC | END 2022-03-14 13:54 | disposition home or self-care (01) | LOC: BICMAMMO 13:53 | PROVIDERS: ATTEND Internal Medicine Hematology & Oncology | DX: C50.311 Malignant neoplasm of lower-inner quadrant of right female breast (principal); Z86.718 Personal history of other venous thrombosis and embolism | CPT/HCPCS: 77066; G0279 ==

== ENCOUNTER 2022-06-25 14:55 | Outpatient (CLI) | payer BC | END 2022-06-25 14:56 | disposition home or self-care (01) | LOC: BICMAMMO 14:55 | PROVIDERS: ATTEND Internal Medicine | DX: M85.851 Other specified disorders of bone density and structure, right thigh (principal); M85.852 Other specified disorders of bone density and structure, left thigh; M85.88 Other specified disorders of bone density and structure, other site; Z78.0 Asymptomatic menopausal state | CPT/HCPCS: 77080 ==